=== PATIENT | female | born 1965 | race Caucasian/White ===

== ENCOUNTER 2018-12-01 21:03 | Emergency (ER) | payer SELFPAY ==
[~2018-12-01] VITALS: Ht 160 cm; Wt 78.6 kg
[2018-12-01 21:27] VITALS: BP 146/88; Ht 160 cm; Wt 78.6 kg
== END 2018-12-01 23:57 | disposition left against medical advice (07) ==
LOC: ED 21:03
DX: Z53.21 Procedure and treatment not carried out due to patient leaving prior to being seen by health care provider (principal)